=== PATIENT | male | born 1975 | race Asian ===

== ENCOUNTER 2017-06-22 12:32 | Emergency (ER) | payer SELFPAY ==
[~2017-06-22] VITALS: Ht 167.6 cm; Wt 90.7 kg
[2017-06-22 13:18] VITALS: BP 150/83
[2017-06-22] MEDS ORDERED: CYCL10TA2 PO (13:37)
--- NOTE | 2017-06-22 13:39 | PHYS DOC ---
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 She states that his foot slipped out from underneath of him and when he landed he landed on the bottom. He did not hit each step as he went down. Patient denies any loss of bowel or bladder. He denies any numbness or to going down to his lower extremity. He states his been able to ambulate without difficulty. He states that he's having right lower back pain. He has taken Tylenol PM however he is very drowsy here in the emergency department and his significant other is answering most of the questions. Review of Systems Review of Systems Constitutional: Denies fever or chills [] Eyes: Denies change in visual acuity, redness, or eye pain [] HENT: Denies nasal congestion or sore throat [] Respiratory: Denies cough or shortness of breath [] Cardiovascular: No additional information not addressed in HPI [] GI: Denies abdominal pain, nausea, vomiting, bloody stools or diarrhea [] : Denies dysuria or hematuria [] Musculoskeletal: Complaining of lower back pain denies any joint pain Integument: Denies rash or skin lesions [] Neurologic: Denies headache, focal weakness or sensory changes [] Endocrine: Denies polyuria or polydipsia [] Allergies Allergies Allergies Coded Allergies Type Severity Reaction Last Updated Verified No Known Drug Allergies 06/22/17 No Physical Exam Physical Exam Constitutional: Well developed, well nourished, no acute distress, non-toxic appearance. [] HENT: Normocephalic, atraumatic, bilateral external ears normal, oropharynx moist, no oral exudates, nose normal. [] Eyes: PERRLA, EOMI, conjunctiva normal, no discharge. [] Neck: Normal range of motion, no tenderness, supple, no stridor. [] Cardiovascular:Heart rate regular rhythm Lungs & Thorax: No respiratory distress noted. Skin: Warm, dry, no erythema, no rash. [] Back: No thoracic spine, lumbar spine tenderness, no crepitus, no deformities and no step-offs noted. No CVA tenderness. [] Extremities: No tenderness, no cyanosis, no clubbing, ROM intact, no edema. Patient with equal strength noted to lower extremities. Peripheral pulses 2+ cap refill brisk less than 2 seconds. Neurologic: Alert and oriented X 3, normal motor function, normal sensory function, no focal deficits noted. [] Psychologic: Affect normal, judgement normal, mood normal. [] Current Patient Data Vital Signs Vital Signs Date Time Temp Pulse Resp B/P (MAP) Pulse Ox O2 Delivery O2 Flow Rate FiO2 06/22/17 13:18 45 100 Room Air EKG EKG [] Radiology/Procedures Radiology/Procedures [] Course & Med Decision Making Course & Med Decision Making Pertinent Labs and Imaging studies reviewed. (See chart for details) Spoke with family member in regards to patient using ice packs on his lower back area also recommended ibuprofen 800 mg every 8 hours with food. Patient will be provided with a prescription for Flexeril in which they were instructed will cause drowsiness do not take any be alert and oriented. Also recommended not taking the Tylenol PM with a Flexeril. Patient will be discharged home in stable condition with recommendations to follow-up with her primary care physician in the next 7-10 days. Signs symptoms to return back to emergency department been provided. Family member agrees with discharge instructions treatment regimens and follow-up recommendations. [] Dragon Disclaimer Dragon Disclaimer This electronic medical record was generated, in whole or in part, using a voice recognition dictation system. Departure Departure Impression: Primary Impression: Lower back pain Disposition: 01 HOME, SELF-CARE Condition: STABLE Referrals: NO PCP (PCP) Patient Instructions: Back Pain, Adult, [id number] Additional Instructions: Activity as tolerated. Ibuprofen 800 mg every hours with food. Flexeril will cause drowsiness do not take any be alert and oriented. Ice packs on 20 minutes off 20 minutes several times a day. Follow-up to primary care physician in the next 7-10 days. Return back to emergency prior signs symptoms of become worse. Scripts Cyclobenzaprine Hcl (CYCLOBENZAPRINE HCL) 10 Mg Tablet 10 MG PO TID, #30 TAB Prov: MARI OWUSU APRN 06/22/17 MARI OWUSU APRN Jun 22, 2017 13:39
== END 2017-06-22 13:45 | disposition home or self-care (01) ==
LOC: ER 12:32
DX: M54.5 Low back pain (principal)
CPT/HCPCS: 99283